=== PATIENT | male | born 2000 | race Two or more races ===

== ENCOUNTER 2022-11-04 02:56 | Emergency (ER) | payer SELFPAY ==
[~2022-11-04] VITALS: Ht 175.3 cm; Wt 90.0 kg
[2022-11-04] MEDS ORDERED: IOHEXOL 300 MG/ML 100ML BOTTLE IJ ONE (03:28)
[2022-11-04 07:38] VITALS: BP 123/84
== END 2022-11-04 08:06 | disposition home or self-care (01) ==
LOC: EDSEX 02:56 → EDBD 02:56 → ER 02:56
DX: S00.83XA Contusion of other part of head, initial encounter (principal); S16.1XXA Strain of muscle, fascia and tendon at neck level, initial encounter; V49.9XXA Car occupant (driver) (passenger) injured in unspecified traffic accident, initial encounter; Y93.89 Activity, other specified; Y92.89 Other specified places as the place of occurrence of the external cause; Y99.8 Other external cause status
CPT/HCPCS: 70450; 71260; 72125; 74177; 99285; Q9967